=== PATIENT | female | born 1990 | race Caucasian/White ===

== ENCOUNTER 2017-09-12 01:49 | Emergency (ER) | payer MEDICAID ==
[2017-09-12] MEDS ORDERED: IBUPROFEN 600 MG TAB PO ONE (01:56)
[2017-09-12] MEDS ORDERED: ACETAMINOPHEN 500 MG TAB PO ONE (01:56)
[2017-09-12] MEDS ORDERED: IBUPROFEN 200 MG TAB PO ONE (02:05)
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
[2017-09-12 03:00] VITALS: BP 100/52
== END 2017-09-12 02:55 | disposition home or self-care (01) ==
LOC: CED 01:49
DX: S60.221A Contusion of right hand, initial encounter (principal); S80.812A Abrasion, left lower leg, initial encounter; S80.811A Abrasion, right lower leg, initial encounter; F17.200 Nicotine dependence, unspecified, uncomplicated; J45.909 Unspecified asthma, uncomplicated; W22.01XA Walked into wall, initial encounter
CPT/HCPCS: 73130-PO; L3925